=== PATIENT | male | born 1930 | race Hispanic/Latino ===

== ENCOUNTER 2019-04-05 09:44 | Observation (INO) | payer OTHER ==
--- OUTSIDE RECORDS SUMMARY | 2019-04-05 09:46 | XMS REPORT ---
:1930 Author Organization [facility] Address [address] [place] [id number] Care Team Providers Name Role Phone Unavailable Unavailable Unavailable Problems This patient has no known problems. Allergies, Adverse Reactions, Alerts This patient has no known allergies or adverse reactions. Medications This patient has no known medications.
[2019-04-05] MEDS ORDERED: NA CHLORIDE 0.9% 500 ML ONE (10:27)
[2019-04-05 10:38] LABS: Absolute Lymphocytes (CBC) 1.8 K/uL (0.7-4.9); Basophils % 0.5 % (0-1.3); Hematocrit 42.2 % (39.6-49.0); MPV 8.8 fL (7.6-11.3); RBC Red Blood Cell Count 4.64 M/uL (4.33-5.43)
[2019-04-05 10:55] LABS: Albumin 3.3 g/dL (3.4-5.0); Bilirubin Direct 0.3 mg/dL (0-0.2); Bilirubin Total 0.9 mg/dL (0.2-1.0); Potassium 3.8 mmol/L (3.5-5.1); Protein, Total 6.8 g/dL (6.4-8.2)
[2019-04-05 11:02] LABS: Urine Bacteria 20-50 /HPF (NONE SEEN); Urine RBC <5 /HPF (NONE SEEN)
[2019-04-05 11:03] LABS: Urine Culture Reflex Order NOT NEEDED; Urine Mucus 1+ /HPF (NONE SEEN)
[2019-04-05] MEDS ORDERED: LORazepam 2 MG/ML VIAL ONE ×2 (11:24→11:41)
[2019-04-05] MEDS ORDERED: CEFTRIAXONE/SWI 1gm 1 GM/10 ML SYR ONE (11:51)
--- NOTE | 2019-04-05 12:04 | RAD REPORT ---
EXAM DESCRIPTION: CT - Head Brain Wo Cont - 04/05/2019 11:49 am CLINICAL HISTORY: Alteration of awareness/confusion / agitation COMPARISON: January 2019 TECHNIQUE: Computed axial tomography of the head was obtained. IV contrast was not requested. All CT scans are performed using dose optimization technique as appropriate and may include automated exposure control or mA/KV adjustment according to patient size. FINDINGS: Very small right frontal lobe bleed has resolved. The ventricles are normal in caliber. No extra-axial fluid collection is noted. Cerebral atrophy is again demonstrated. Fluid within the sinuses/ mastoids is not seen. IMPRESSION: Resolution of the small right frontal lobe bleed
--- NOTE | 2019-04-05 12:13 | RAD REPORT ---
EXAM DESCRIPTION: CT - Abdomen Pelvis W Contrast - 04/05/2019 11:50 am CLINICAL HISTORY: Abdominal pain COMPARISON: 2013 TECHNIQUE: Computed axial tomography of the abdomen pelvis was obtained. 100 cc Isovue-300 was admin istered intravenously. Oral contrast was not requested which limits evaluation of bowel. All CT scans are performed using dose optimization technique as appropriate and may include automated exposure control or mA/KV adjustment according to patient size. FINDINGS: The liver, spleen, and adrenals appear unremarkable. Atrophic pancreas. 9.3 centimeter lef t renal cyst decreased in size from the prior exam. Small right renal cyst There is no evidence of diverticulitis. Normal appendix Mild rectal wall thickening. Mild enlargement of the prostate gland IMPRESSION: Mild rectal wall thickening may indicate a mild proctitis.
--- NOTE | 2019-04-05 12:14 | RAD REPORT ---
EXAM DESCRIPTION: Basilio Single View04/05/2019 11:20 am CLINICAL HISTORY: cough COMPARISON: 2017 FINDINGS: The lungs appear clear of acute infiltrate. The heart is normal size. The aorta is tortuo us/ectatic IMPRESSION: No acute abnormalities displayed
[2019-04-05 12:46] LABS: Urine Blood NEGATIVE (NEG); Urine Glucose NEGATIVE (NEG); Urine Protein TRACE (NEG)
--- NOTE | 2019-04-05 12:55 | EDPHYS ---
Physician Documentation [facility] Name: Tony Mcadams Age: 88 yrs Sex: Male : 1930 Arrival Date: 04/05/2019 Time: 09:46 Bed 8 Private MD: ED Physician Grant Arroyo HPI: 04/05 09:52 This 88 yrs old Male presents to ER via EMS with complaints of Confusion. rn 09:52 This 88 yrs old Male presents to ER via EMS with complaints of agitated. rn 09:52 The patient presents with agitation. Onset: The symptoms/episode began/occurred rn yesterday, at an unknown time. Possible causes: unknown. Current symptoms: In the emergency department the patient's symptoms are unchanged from the initial presentation. It is unknown whether or not the patient has had similar symptoms in the past. Pt new to [place], began complaining of pain and agitated since yesterday, unknown etiology, so EMS called today. Pt with dementia. No known trauma. Family not here to give information.. Historical: - Allergies: :52 No Known Allergies; tw2 - Home Meds: 09:52 paroxetine HCl 10 mg oral tab 1 tab once daily [Active]; Systane Vitamin [id number] tw2 fx-xi-zx-unit oral cap [Active]; triamterene-hydrochlorothiazid 37.5-25 mg Oral tab 1 tab once daily [Active]; acetaminophen 325 mg Oral tab 2 tabs every 6 hours [Active]; - PMHx: 09:52 Hypothyroidism; Depression; Edema; Osteoarthritis; Weakness; tw2 - PSHx: 09:52 None; tw2 - Immunization history:: Adult Immunizations. - Social history:: Smoking status: . - Ebola Screening: : Patient denies travel to an Ebola-affected area in the 21 days before illness onset. - Family history:: not pertinent. - Hospitalizations: : No recent hospitalization is reported. ROS: 09:57 Unable to obtain ROS due to baseline dementia, patient being uncooperative. rn Exam: :57 Constitutional: Thin male, appears agitated, incomprehensible speech, mumbling rn Head/Face: Normocephalic, atraumatic. ENT: dry MM Neck: Trachea midline, no thyromegaly or masses palpated, and no cervical lymphadenopathy. Supple, full range of motion without nuchal rigidity, or vertebral point tenderness. No Meningismus. Chest/axilla: Normal chest wall appearance and motion. Nontender with no deformity. No lesions are appreciated. Cardiovascular: Regular rate and rhythm. No pulse deficits. Respiratory: Lungs have equal breath sounds bilaterally, clear to auscultation. No increased work of breathing, no retractions or nasal flaring. Abdomen/GI: soft, some grimacing with palpation in lower quadrants Skin: Warm, dry MS/ Extremity: Pulses equal, no cyanosis. Neuro: Awake, incomprehensible speech, moves all 4 extremities with 4/5 strength. Does not follow commands, does track with eyes, continuaously mumbling, easily calmed and redirectable by family. Vital Signs: 09:50 BP 126 / 65; Pulse 74; Resp 18; Temp 97.5; Pulse Ox 100% ; Height 70 in. (177.80 cm); sv 11:04 BP 125 / 69; Pulse 64; Resp 16; Pulse Ox 100% ; sv 12:08 BP 124 / 61; Pulse 69; Resp 17; Pulse Ox 100% on R/A; tw2 12:42 BP 128 / 70; Pulse 60; Resp 16; Pulse Ox 100% on 2 lpm NC; sv 13:00 BP 146 / 61; Pulse 59; Resp 16; Pulse Ox 100% on 2 lpm NC; sv 13:30 BP 142 / 80; Pulse 58; Resp 16; Pulse Ox 100% on 2 lpm NC; sv MDM: 09:46 Patient medically screened. rn 12:51 Differential Diagnosis: CVA, electrolyte abnormality, intracranial bleed, pneumonia, rn sepsis, TIA, UTI, volume depletion. Data reviewed: vital signs, nurses notes, lab test result(s), EKG, radiologic studies, CT scan, plain films, and as a result, I will admit patient. Counseling: I had a detailed discussion with the patient and/or guardian regarding: the historical points, exam findings, and any diagnostic results supporting the discharge/admit diagnosis, lab results, radiology results, the need for further work-up and treatment in the hospital. Response to treatment: the patient's symptoms have mildly improved after treatment, and as a result, I will admit patient. Admission orders: after a detailed discussion of the patient's condition and case, the admit orders are written by me. ED course: Admitted to [facility] for AMS, delirium, UTI on cath specimen, patient not with it enough to take oral abx, and combative, will not be accepted back by retirement. . 04/05 09:50 Order name: CBC with Diff; Complete Time: 11: rn 04/05 09:50 Order name: Basic Metabolic Panel; Complete Time: 11: rn 04/05 09:50 Order name: Urine Culture rn 04/05 09:50 Order name: Urine Microscopic Only; Complete Time: : rn 04/05 09:50 Order name: Creatinine for Radiology; Complete Time: : rn 04/05 09:50 Order name: Hepatic Function; Complete Time: : rn 04/05 09:50 Order name: Lipase; Complete Time: : rn 04/05 10:01 Order name: Troponin (emerg Dept Use Only); Complete Time: 12:15 rn 04/05 10:30 Order name: Urine Dipstick--Ancillary (enter results); Complete Time: 12:48 eb 04/05 13:31 Order name: Lactate EDNE 04/05 13:31 Order name: Thyroid Stimulating Hormone EDNE 04/05 13:31 Order name: CBC with Automated Diff EDMS 04/05 13:31 Order name: CBC with Automated Diff EDNE 04/05 13:31 Order name: Comprehensive Metabolic Panel EDNE 04/05 09:50 Order name: CT Head Brain wo Cont; Complete Time: 12:15 rn 04/05 09:50 Order name: CT Abd/Pelvis - IV Contrast Only; Complete Time: 12:15 rn 04/05 09:50 Order name: XRAY Chest (1 view); Complete Time: 12:15 rn 04/05 13:31 Order name: NPO EDMS 04/05 13:31 Order name: Comprehensive Metabolic Panel EDNE 04/05 13:31 Order name: Troponin I EDNE 04/05 13:31 Order name: Troponin I EDMS 04/05 13:31 Order name: Troponin I EDMS 04/05 13:31 Order name: Troponin I EDMS 04/05 13:32 Order name: Urinalysis EDMS 04/05 13:36 Order name: Brain Wo Cont EDMS 04/05 09:50 Order name: IV Start; Complete Time: 10:32 rn 04/05 09:50 Order name: Urine Dipstick-Ancillary (obtain specimen); Complete Time: 10:32 rn 04/05 09:50 Order name: Labs collected and sent; Complete Time: 10:32 rn Administered Medications: 10:32 Drug: NS 0.9% 500 ml Route: IV; Rate: bolus; Site: left forearm; sv 11:00 Follow up: Response: No adverse reaction; IV Status: Completed infusion; IV Intake: sv 500ml 11:27 Drug: Ativan 0.5 mg Route: IVP; Site: left forearm; sv 11:42 Follow up: Response: No adverse reaction; No change in condition sv 11:42 Drug: Ativan 0.5 mg Route: IVP; Site: left forearm; sv 12:10 Follow up: Response: No adverse reaction; Marked relief of symptoms tw2 11:49 CANCELLED (Duplicate Order): Rocephin - (cefTRIAXone) 1 grams IVPB once over 30 mins; tw2 (mix in 50 mL NS) 11:55 Drug: Rocephin 1 grams Route: IV; Rate: bolus; Site: left forearm; tw2 12:00 Follow up: Response: No adverse reaction; IV Status: Completed infusion tw2 Disposition: 04/05/19 12:54 Hospitalization ordered by [facility] for Observation. Preliminary diagnosis are Delirium due to known physiological condition, Dehydration, Urinary tract infection, site not specified. - Bed requested for Telemetry/MedSurg (observation). - Status is Observation. sv - Condition is Stable. - Problem is new. - Symptoms have improved. UTI on Admission? Yes Signatures: Dispatcher [employer] EDMS Avis Urbina RN RN sv Nieto, Roman, MD MD rn Wise, Tara, RN RN tw2 Elvia Sandy Corrections: (The following items were deleted from the chart) 09:57 09:52 Constitutional: Negative for fever, chills, and weight loss, Eyes: Negative for rn injury, pain, redness, and discharge, Cardiovascular: Negative for chest pain, palpitations, and edema, Respiratory: Negative for shortness of breath, cough, wheezing, and pleuritic chest pain, Abdomen/GI: Negative for abdominal pain, nausea, vomiting, diarrhea, and constipation, MS/Extremity: Negative for injury and deformity, Skin: Negative for injury, rash, and discoloration, Neuro: Negative for headache, weakness, numbness, tingling, and seizure, rn 11:49 11:47 Rocephin - (cefTRIAXone) 1 grams IVPB once over 30 mins; (mix in 50 mL NS) tw2 ordered. rn 12:55 12:54 Hospitalization Ordered by [facility] MD for Observation. Preliminary eb diagnosis is Delirium due to known physiological condition; Dehydration; Urinary tract infection, site not specified. Bed requested for Telemetry/MedSurg (observation). Status is Observation. Condition is Stable. Problem is new. Symptoms have improved. UTI on Admission? Yes. rn 13:49 12:55 04/05/2019 12:54 Hospitalization Ordered by [facility] MD for Observation. eb Preliminary diagnosis is Delirium due to known physiological condition; Dehydration; Urinary tract infection, site not specified. Bed requested for Telemetry/MedSurg (observation). Status is Observation. Condition is Stable. Problem is new. Symptoms have improved. UTI on Admission? Yes. eb 14:20 13:49 04/05/2019 12:54 Hospitalization Ordered by [facility] MD for Observation. sv Preliminary diagnosis is Delirium due to known physiological condition; Dehydration; Urinary tract infection, site not specified. Bed requested for Telemetry/MedSurg (observation). Status is Observation. Condition is Stable. Problem is new. Symptoms have improved. UTI on Admission? Yes. eb
--- NOTE | 2019-04-05 12:55 | ER ---
Nurse's Notes [facility] Name: Tony Mcadams Age: 88 yrs Sex: Male : 1930 Arrival Date: 04/05/2019 Time: 09:46 Bed 8 Private MD: Diagnosis: Delirium due to known physiological condition;Dehydration;Urinary tract infection, site not specified Presentation: 04/05 09:41 Presenting complaint: EMS states: was admitted to [facility] on Tuesday for Dementia, sv is usually A\T\O x2-3 but today he was more confused and not taking his meds. BP 134/63 HR-74 RR-24 98.3. Transition of care: patient was not received from another setting of care. Onset of symptoms was April 05, 2019. Risk Assessment: Do you want to hurt yourself or someone else? Unable to obtain. Initial Sepsis Screen: Does the patient meet any 2 criteria? No. Patient's initial sepsis screen is negative. Does the patient have a suspected source of infection? No. Patient's initial sepsis screen is negative. 09:41 Method Of Arrival: EMS: [facility] sv 09:41 Acuity: PADMINI 3 sv 09:47 Care prior to arrival: None. tw2 Triage Assessment: 09:45 General: Appears in no apparent distress. Behavior is combative, uncooperative. Pain: sv Unable to use pain scale. Does not appear to understand pain scale. Neuro: Level of Consciousness is awake, alert, confused, Oriented to none Moves all extremities. Full function. Respiratory: Airway is patent Respiratory effort is even, unlabored, Respiratory pattern is regular, symmetrical. GI: Abd is soft X 4 quads Abdomen is tender to palpation in right lower quadrant and left lower quadrant with grimacing. Derm: Skin is normal. Historical: - Allergies: 09:52 No Known Allergies; tw2 - Home Meds: 09:52 paroxetine HCl 10 mg oral tab 1 tab once daily [Active]; Systane Vitamin [id number] tw2 xa-cv-qi-unit oral cap [Active]; triamterene-hydrochlorothiazid 37.5-25 mg Oral tab 1 tab once daily [Active]; acetaminophen 325 mg Oral tab 2 tabs every 6 hours [Active]; - PMHx: 09:52 Hypothyroidism; Depression; Edema; Osteoarthritis; Weakness; tw2 - PSHx: 09:52 None; tw2 - Immunization history:: Adult Immunizations. - Social history:: Smoking status: . - Ebola Screening: : Patient denies travel to an Ebola-affected area in the 21 days before illness onset. - Family history:: not pertinent. - Hospitalizations: : No recent hospitalization is reported. Screenin:47 Abuse screen: Denies threats or abuse. Nutritional screening: No deficits noted. tw2 Tuberculosis screening: No symptoms or risk factors identified. Fall Risk Secondary diagnosis (15 points) impaired mobility. Assessment: 10:36 Reassessment: Patient appears in no apparent distress at this time. No changes from sv previously documented assessment. Patient and/or family updated on plan of care and expected duration. Pain level reassessed. 12:08 Reassessment: Patient appears in no apparent distress at this time. Patient and/or tw2 family updated on plan of care and expected duration. Pain level reassessed. pt is resting quietly at this time. 13:10 Reassessment: Patient appears in no apparent distress at this time. No changes from sv previously documented assessment. Patient and/or family updated on plan of care and expected duration. Pain level reassessed. 14:00 Reassessment: Patient appears in no apparent distress at this time. No changes from sv previously documented assessment. Patient and/or family updated on plan of care and expected duration. Pain level reassessed. Vital Signs: 09:50 BP 126 / 65; Pulse 74; Resp 18; Temp 97.5; Pulse Ox 100% ; Height 70 in. (177.80 cm); sv 11:04 BP 125 / 69; Pulse 64; Resp 16; Pulse Ox 100% ; sv 12:08 BP 124 / 61; Pulse 69; Resp 17; Pulse Ox 100% on R/A; tw2 12:42 BP 128 / 70; Pulse 60; Resp 16; Pulse Ox 100% on 2 lpm NC; sv 13:00 BP 146 / 61; Pulse 59; Resp 16; Pulse Ox 100% on 2 lpm NC; sv 13:30 BP 142 / 80; Pulse 58; Resp 16; Pulse Ox 100% on 2 lpm NC; sv ED Course: 09:46 Patient arrived in ED. rn 09:46 Grant Arroyo MD is Attending Physician. rn 09:47 Arm band placed on. tw2 09:50 Triage completed. sv 09:50 Straight cath inserted, using sterile technique, 14 Fr. Specimen obtained. coude used sv after a 16F regular martin was unsuccessful. Returned elio urine. Patient tolerated poorly. 09:51 Patient has correct armband on for positive identification. Bed in low position. Call sv light in reach. Side rails up X2. Adult w/ patient. Pulse ox on. NIBP on. Warm blanket given. Head of bed elevated. 09:53 Avis Urbina, RN is Primary Nurse. sv 10:00 EKG done, by mathematical technician. reviewed by Grant Arroyo MD. at1 10:01 Inserted saline lock: 20 gauge in left forearm, using aseptic technique. Blood sv collected. Flushed left forearm with 5 ml normal saline. 10:22 Radiology exam delayed due to lab results not completed at this time. (BUN/Creatinine). sj 10:36 Awaiting lab results, Awaiting CT Scan, Awaiting for x-ray. sv 11:20 Radiology exam delayed due to wainting for ativan. sj 11:21 XRAY Chest (1 view) In Process Unspecified. EDMS 11:[address] via stretcher. sv 11:50 CT Head Brain wo Cont In Process Unspecified. EDMS 11:50 CT Abd/Pelvis - IV Contrast Only In Process Unspecified. EDMS 12:12 Awaiting radiology results. sv 12:53 [facility] MD is Hospitalizing Provider. rn 13:53 No provider procedures requiring assistance completed. Patient admitted, IV remains in sv place. intact. Administered Medications: 10:32 Drug: NS 0.9% 500 ml Route: IV; Rate: bolus; Site: left forearm; sv 11:00 Follow up: Response: No adverse reaction; IV Status: Completed infusion; IV Intake: sv 500ml 11:27 Drug: Ativan 0.5 mg Route: IVP; Site: left forearm; sv 11:42 Follow up: Response: No adverse reaction; No change in condition sv 11:42 Drug: Ativan 0.5 mg Route: IVP; Site: left forearm; sv 12:10 Follow up: Response: No adverse reaction; Marked relief of symptoms tw2 11:49 CANCELLED (Duplicate Order): Rocephin - (cefTRIAXone) 1 grams IVPB once over 30 mins; tw2 (mix in 50 mL NS) 11:55 Drug: Rocephin 1 grams Route: IV; Rate: bolus; Site: left forearm; tw2 12:00 Follow up: Response: No adverse reaction; IV Status: Completed infusion tw2 Intake: 11:00 IV: 500ml; Total: 500ml. sv Outcome: 12:54 Decision to Hospitalize by Provider. rn 14:01 Admitted to Tele accompanied by tech, family with patient, via stretcher, room 408, sv with oxygen, with chart, Report called to Natalie MCKEON 14:01 Condition: stable 14:01 Instructed on the need for admit. 14:20 Patient left the ED. sv Signatures: Dispatcher [employer] Avis Jiang RN RN sv Jones, Susan sj Nieto, Roman, MD MD rn Gonzales, Amanda, dry sander EKG Tat1 Margaret Guardado RN RN tw2 Corrections: (The following items were deleted from the chart) 09:53 09:41 Acuity: PADMINI 4 sv sv
[2019-04-05] MEDS ORDERED: ONDANSETRON 4 MG/2 ML VIAL IV PRN (13:26)
[2019-04-05] MEDS ORDERED: ACETAMINOPHEN 500 MG TAB PO PRN (13:26)
--- NOTE | 2019-04-05 13:34 | P.HP ---
Certification for Inpatient Patient admitted to: Inpatient With expected LOS: >2 Midnights Patient will require the following post-hospital care: [facility] Practitioner: I am a practitioner with admitting privileges, knowledge of patient current condition, hospital course, and medical plan of care. Services: Services provided to patient in accordance with Admission requirements found in Title 42 Section 412.3 of the Code of Federal Regulations Patient History Date of Service: 04/05/19 Reason for admission: Altered mental status History of Present Illness: 88-year-old male with past medical history of Hypothyroidism; Depression; Edema ; Osteoarthritis ,dementia transferred from the [facility] with altered mental status noticed this morning. Patient is still altered with no family at the bedside. Has most of the history is obtained from the chart review and talking with the ER physician. Patient developed altered mental status this morning and has been agitated and was brought to ER. The patient is still not responding well and the workup was showing UTI. His was admitted for further management. The time of interview. Vital signs are stable , patient still drowsy and difficult to arouse. Allergies NKDA Allergy (Uncoded 04/05/19 15:25) Unknown Home medications list reviewed: Yes Home Medications: Aspirin Chewable [Aspirin Chewable*] 1 tab PO DAILY 10/08/13 Levothyroxine Sodium 25 mcg PO [id number] 04/05/19 PARoxetine HCl [Paxil*] 1 tab PO DAILY 04/05/19 Triamterene/Hydrochlorothiazid [Triamterene-Hctz 37.5-25 mg Cp] 1 tab PO DAILY 04/05/19 - Past Medical/Surgical History Diabetic: No Past Medical History: Reviewed- Non-Contributory -: arthritis -: Dementia Past Surgical History: Unable to obtain - Family History Family History: Reviewed- Non-Contributory - Family History Mother -: Other (see notes) Notes: Dementia Sister -: Other (see notes) Notes: Dementia - Social History Alcohol use: No CD- Drugs: No Caffeine use: Yes Review of Systems is unable to be obtained Physical Examination - Vital Signs Temperature: 97.5 F Blood Pressure: 126/65 Pulse: 78 - Physical Exam General: In no apparent distress, Confused HEENT: Atraumatic, Normocephalic Neck: Supple Respiratory: Clear to auscultation bilaterally, Normal air movement Cardiovascular: Normal pulses, Regular rate/rhythm Capillary refill: <2 Seconds Gastrointestinal: Soft and benign, W/out hepatosplenomegaly Musculoskeletal: No swelling Integumentary: No rashes Neurological: Other (Drowsy , Difficult to arouse ) Lymphatics: No axilla or inguinal lymphadenopathy External genitalia: Deferred Rectal: Deferred - Studies Laboratory Data (last 24 hrs) 04/05/19 10:21: Creatinine 1.46 H 04/05/19 10:21: Sodium 143, Potassium 3.8, BUN 25 H, Creatinine 1.46 H, Glucose 102, Total Bilirubin 0.9, AST 26, ALT 14, Alkaline Phosphatase 58, Lipase 40 L 04/05/19 10:21: WBC 6.8, Hgb 13.8, Hct 42.2, Plt Count 194 Assessment and Plan - Problems (Diagnosis) (1) Acute encephalopathy Current Visit: Yes Status: Acute Plan: Acute encephalopathy Possibly related to UTI Start on antibiotics Monitor neuro vital signs closely CT brain findings: : Resolution of the small right frontal lobe bleed Will get an MRI of the brain Will get a neurology consult (2) UTI (urinary tract infection) Current Visit: Yes Status: Acute Plan: Will start on Rocephin get cultures Change antibiotic as per the sensitivity (3) Acute kidney injury Current Visit: Yes Status: Acute Plan: Probably related to dehydration Monitor renal parameters Will start on IV hydration (4) Dehydration Current Visit: Yes Status: Acute Plan: Start on IV hydration (5) Proctitis Current Visit: Yes Status: Acute Plan: will start on anbiotics Rocephin and Flagyl Pain control Discharge Plan: Correction Plan to discharge in: Greater than 2 days - Advance Directives Does patient have a Living Will: No Does patient have a Durable POA for Healthcare: No Time Spent Managing Pts Care (In Minutes): 45
[2019-04-05] MEDS ORDERED: CEFTRIAXONE/SWI 1gm 1 GM/10 ML SYR IVP SCH (14:00)
[2019-04-05] MEDS: NA CHLORIDE 0.9% 1,000 ML IV SCH (14:33)
[2019-04-05 15:08] VITALS: BMI 28.2
[2019-04-05] MEDS ORDERED: LORazepam 2 MG/ML VIAL IV PRN (16:04)
[2019-04-05] MEDS: METRONIDAZOLE 500mg IVPB 500 MG/100 ML BAG IV SCH (16:48)
[2019-04-06] MEDS: NA CHLORIDE 0.9% 1,000 ML IV SCH ×2 (03:27→12:04)
[2019-04-06] MEDS: METRONIDAZOLE 500mg IVPB 500 MG/100 ML BAG IV SCH ×3 (03:27→16:00)
[2019-04-06 06:31] LABS: Absolute Lymphocytes (CBC) 1.1 K/uL (0.7-4.9); Basophils % 0.4 % (0-1.3); Hematocrit 36.1 % (39.6-49.0); Lymphocytes % 19.6 % (15.3-44.8); MPV 9.1 fL (7.6-11.3); RBC Red Blood Cell Count 4.01 M/uL (4.33-5.43)
[2019-04-06 06:53] LABS: Albumin 2.7 g/dL (3.4-5.0); Bilirubin Total 0.8 mg/dL (0.2-1.0); Potassium 3.5 mmol/L (3.5-5.1); Protein, Total 5.7 g/dL (6.4-8.2); Troponin I 0.03 ng/mL (0.0-0.045)
[2019-04-06] MEDS ORDERED: KCL 20 MEQ/100 mL IVPB 20 MEQ/100 ML BAG IV SCH (08:00)
[2019-04-06] MEDS ORDERED: CEFTRIAXONE/SWI 1gm 1 GM/10 ML SYR IVP SCH (09:00)
--- NOTE | 2019-04-06 09:42 | P.PN ---
Subjective Date of Service: 04/06/19 Chief Complaint: Altered mental status Subjective: No new changes The patient originally admitted for altered mental status. Was found to have urinary tract infection and was encephalopathic. Review of Systems is unable to be obtained (Altered mentation) Physical Examination - Vital Signs Temperature: 97.7 F Blood Pressure: 101/54 Pulse: 66 Respirations: 16 Pulse Ox (%): 100 - Physical Exam General: Oriented x1, Confused HEENT: Normocephalic, PERRLA, Mucous membr. moist/pink, EOMI Neck: Supple, 2+ carotid pulse no bruit, JVD not distended, No Thyromegaly Respiratory: Clear to auscultation bilaterally, Normal air movement Cardiovascular: No edema, Normal pulses, Regular rate/rhythm, Normal S1 S2, No gallops, No rubs, Systolic murmur Capillary refill: <2 Seconds Gastrointestinal: Normal bowel sounds, Soft and benign, Non-distended, No ascites, No tenderness, No masses Musculoskeletal: No clubbing, No swelling, No erythema, No tenderness, No warmth , Contractures Integumentary: No rashes, No breakdown, No significant lesion, No tenderness/ swelling, No erythema, No warmth, No cyanosis Neurological: Other (Diffuse, somewhat follows commands, assessment inherently limited secondary to baseline mental status. ) - Studies Laboratory Data (last 24 hrs) 04/05/19 10:21: Creatinine 1.46 H 04/05/19 10:21: Sodium 143, Potassium 3.8, BUN 25 H, Creatinine 1.46 H, Glucose 102, Total Bilirubin 0.9, AST 26, ALT 14, Alkaline Phosphatase 58, Lipase 40 L 04/05/19 10:21: WBC 6.8, Hgb 13.8, Hct 42.2, Plt Count 194 Medications List Reviewed: Yes Assessment & Plan - Problems (Diagnosis) (1) Acute encephalopathy Current Visit: Yes Status: Acute Plan: Doctor Remi is seeing patient. MRI is ordered. Pending status to further determine if any other acute neurologic process is are present. (2) Acute kidney injury Current Visit: Yes Status: Acute Plan: Continue light hydration and monitor renal status with labs. (3) Dehydration Current Visit: Yes Status: Acute Plan: Any light hydration (4) Proctitis Current Visit: Yes Status: Acute Plan: Antibiotics given (5) UTI (urinary tract infection) Current Visit: Yes Status: Acute Plan: Continue antibiotics. Swallow study ordered. If the patient passes swallow study, Patient will be switched to oral antibiotics Qualifiers: Urinary tract infection type: acute cystitis (6) Diarrhea Current Visit: No Status: Acute Discharge Plan: Detention Plan to discharge in: 48 Hours - Code Status/Comfort Care Code Status Assessed: No Critical Care: No Time Spent Managing Pts Care (In Minutes): 25
--- NOTE | 2019-04-06 11:14 | RAD REPORT ---
EXAM DESCRIPTION: MRI - Brain Wo Cont - 04/05/2019 9:33 pm CLINICAL HISTORY: Alteration of consciousness/confusion COMPARISON: January [address] 2017 MRI TECHNIQUE: Axial, sagittal, and coronal magnetic images of the brain were obtained. Contrast was not requested FINDINGS: A small subdural hematoma is present along the right frontal and right parietal convexitie s. In retrospect it is present on the February 08, 2019 cat scan but is difficult to see given the p rominent cerebral atrophy which makes the CSF appear more prominent in this region. It is mildly decr eased in size. It is subacute Shift of midline structures is not present. . Diffusion-weighted/ADC mapping does not reveal evidence of acute infarction. The ventricles are normal caliber. Mild signal within periventricular, deep and subcortical white matter likely ischemic changes seconda ry to small vessel disease IMPRESSION: Small subdural hematoma along the right frontal and right parietal convexities is mildly diminished in size from February 08, 2019 and is subacute There is no shift of the midline structures Dr. Sylvester notified 11:08 a.m. April 06, 2019
--- NOTE | 2019-04-06 12:00 | EKG ---
Test Date: 2019-04-05 Test Time: 09:53:43 Drilling Assistant: ROXANA MEASUREMENT RESULTS: Intervals: Rate: 71 CT: 274 QRSD: 92 QT: 416 QTc: 452 [place]: P: 66 CT: 274 QRS: 65 T: -32 INTERPRETIVE STATEMENTS: Sinus rhythm with 1st degree AV block ST & T wave abnormality, consider inferior ischemia ST & T wave abnormality, consider anterolateral ischemia Abnormal ECG Compared to ECG 10/08/2013 09:09:18 ST (T wave) deviation now present Possible ischemia now present Right bundle-branch block no longer present Electronically Signed On 04-06-19 11:57:18 PERINATAL TECHNICIAN by Chalo Fernández
--- NOTE | 2019-04-06 13:34 | P.DS ---
Admission Date: 04/05/19 Discharge Date: 04/06/19 Reason for Admission: Altered mental status Consultations: Dr. Khalil - William (1) Acute encephalopathy Current Visit: Yes Status: Acute (2) Acute kidney injury Current Visit: Yes Status: Acute (3) Dehydration Current Visit: Yes Status: Acute (4) Proctitis Current Visit: Yes Status: Acute (5) UTI (urinary tract infection) Current Visit: Yes Status: Acute Qualifiers: Urinary tract infection type: acute cystitis (6) Diarrhea Current Visit: No Status: Acute Brief History of Present Illness: This is an 88-year-old male patient that was admitted through the emergency room after halfway sent him over for evaluation of acute altered mental status. At that time he was admitted for suspected urinary tract infection was put on antibiotics. Also had an acute kidney injury secondary to dehydration prerenal azotemia. Patient was evaluated by hospital medicine and neurology. Was kept on IV antibiotics, light hydration, oxygen supplementation. Hospital Course: Patient overall has done well. Patient is at baseline currently. Patient has a history of CVA and dementia. No growth of bacteria noted with microscopy. Patient's renal function has normalized. No acute electrolyte abnormalities. MRI shows a resolving subacute subdural hemorrhage. No seizure activity while in the care hospitalist team. Neurologic evaluation was completed without acute finding. EEG was attempted but patient uncooperative. The patient was weaned off oxygen and is without abnormal saturation and without acute respiratory compromise. Clinicals will be sent back to halfway in preparation for discharge today. <Jono Faye - Last Filed: 04/06/19 13:29> Admission Date: 04/05/19 Discharge Date: 04/06/19 Hospital Course: Case reviewed and discussed with Krzysztof Faye NP. Continue with discharge plan of care. <Chaitanya Sylvester - Last Filed: 04/06/19 17:43> Discharge Condition: FAIR Vital Signs/Physical Exam: Temp Pulse Resp BP Pulse Ox 97.7 F 58 16 111/55 L 96 04/06/19 12:00 04/06/19 12:00 04/06/19 12:00 04/06/19 12:00 04/06/19 12:00 General: Oriented x1, Demented, Confused HEENT: Normocephalic, PERRLA, Mucous membr. moist/pink, EOMI Neck: Supple, 2+ carotid pulse no bruit, JVD not distended, No Thyromegaly Respiratory: Clear to auscultation bilaterally, Normal air movement Cardiovascular: No edema, Normal pulses, Regular rate/rhythm, Normal S1 S2, No gallops, No rubs, Systolic murmur Capillary refill: <2 Seconds Gastrointestinal: Normal bowel sounds, Soft and benign, Non-distended, No ascites, No tenderness, No masses Musculoskeletal: No clubbing, No swelling, No contractures, No erythema, No tenderness, No warmth Integumentary: No rashes, No breakdown, No significant lesion, No tenderness/ swelling, No erythema, No warmth, No cyanosis Neurological: Sensation intact, Other (Full assessment limited due to mental status.), Dementia Lymphatics: No axilla or inguinal lymphadenopathy Laboratory Data at Discharge: WBC 5.7 K/uL (4.3-10.9) D 04/06/19 05:46 Hgb 12.1 g/dL (13.6-17.9) L 04/06/19 05:46 Hct 36.1 % (39.6-49.0) L 04/06/19 05:46 Plt Count 176 K/uL (152-406) 04/06/19 05:46 Sodium 144 mmol/L (136-145) 04/06/19 05:46 Potassium 3.5 mmol/L (3.5-5.1) 04/06/19 05:46 BUN 22 mg/dL (7-18) H 04/06/19 05:46 Creatinine 1.15 mg/dL (0.55-1.3) 04/06/19 05:46 Glucose 76 mg/dL (74-106) 04/06/19 05:46 Total Bilirubin 0.8 mg/dL (0.2-1.0) 04/06/19 05:46 AST 19 U/L (15-37) 04/06/19 05:46 ALT 10 U/L (12-78) L 04/06/19 05:46 Alkaline Phosphatase 47 U/L (45-117) 04/06/19 05:46 Troponin I 0.03 ng/mL (0.0-0.045) 04/06/19 05:46 Lipase 40 U/L (73-393) L 04/05/19 10:21 <Jono Faye - Last Filed: 04/06/19 13:29> Vital Signs/Physical Exam: Temp Pulse Resp BP Pulse Ox 97.2 F 60 16 127/57 L 100 04/06/19 16:00 04/06/19 16:00 04/06/19 16:00 04/06/19 16:00 04/06/19 16:00 Laboratory Data at Discharge: WBC 5.7 K/uL (4.3-10.9) D 04/06/19 05:46 Hgb 12.1 g/dL (13.6-17.9) L 04/06/19 05:46 Hct 36.1 % (39.6-49.0) L 04/06/19 05:46 Plt Count 176 K/uL (152-406) 04/06/19 05:46 Sodium 144 mmol/L (136-145) 04/06/19 05:46 Potassium 3.5 mmol/L (3.5-5.1) 04/06/19 05:46 BUN 22 mg/dL (7-18) H 04/06/19 05:46 Creatinine 1.15 mg/dL (0.55-1.3) 04/06/19 05:46 Glucose 76 mg/dL (74-106) 04/06/19 05:46 Total Bilirubin 0.8 mg/dL (0.2-1.0) 04/06/19 05:46 AST 19 U/L (15-37) 04/06/19 05:46 ALT 10 U/L (12-78) L 04/06/19 05:46 Alkaline Phosphatase 47 U/L (45-117) 04/06/19 05:46 Troponin I 0.03 ng/mL (0.0-0.045) 04/06/19 05:46 Lipase 40 U/L (73-393) L 04/05/19 10:21 <Chaitanya Sylvester - Last Filed: 04/06/19 17:43> Patient Discharge Instructions: -Patient admitted for toxic encephalopathy secondary to urinary tract infection. As such will be put on Augmentin 875 b.i.d. for 7 days. skilled nursing staff is to crush pill and put into soft diet so patient can ingest medicine with minimal risk of aspiration. -Patient has a number of other chronic medical conditions and will require continuation of home medications. -Patient needs to continue oral hydration to ensure patient does not go back into acute renal failure. -Patient can follow up with Dr. Khalil outpatient ferreira Diet: Soft diet Activity: Bedrest Time spent managing pt's care (in minutes): 45 <Jono Faye - Last Filed: 04/06/19 13:29> <Chaitanya Sylvester - Last Filed: 04/06/19 17:43> Home Medications: Aspirin Chewable [Aspirin Chewable*] 1 tab PO DAILY 10/08/13 Levothyroxine Sodium 25 mcg PO [id number] 04/05/19 PARoxetine HCl [Paxil*] 1 tab PO DAILY 04/05/19 Triamterene/Hydrochlorothiazid [Triamterene-Hctz 37.5-25 mg Cp] 1 tab PO DAILY 04/05/19 Amoxicillin/Potassium Clav [Augmentin 875-125 Tablet] 1 each PO BID 7 Days #14 tablet 04/06/19 New Medications: Amoxicillin/Potassium Clav [Augmentin 875-125 Tablet] 1 each PO BID 7 Days #14 tablet
[2019-04-06 16:44] VITALS: O2SAT 98
--- NOTE | 2019-04-06 16:44 | CON ---
Reason For Consultation: Consultation called because of altered mental status. History Of Present Illness: Mr. Mcadams is an 88-year-old patient [facility] He has problems of advanced dementia, edema, osteoarthritis, hypothyroidism, and a reported subdural hematoma. The patient is nonverbal and the information is obtained from chart review and sp eaking with nurses. Apparently at his group home, he was less interactive than usual. However, the i nformation is not clear as to what his baseline level of functioning or change was from his baseline level of functioning. In any event, he was brought into [facility] and his initial workup a ppeared to show a possible urinary tract infection. However, cultures did not grow more than 10,000 colony-forming units. His head CT scan did apparently show what appeared to be resolution of a small right frontal bleed. However, the following brain MRI did identify the small subdural hematoma in t he right frontal and parietal convexities that was mildly diminished in size compared to January, and at that point, it was subacute. No acute findings were identified. Past Medical History: As indicated. Allergies: NO KNOWN ALLERGIES. Medications: At home include aspirin 81 mg daily, levothyroxine 25 mcg daily, Paxil daily, triamtere ne hydrochlorothiazide 37.5-25 one daily. Surgical History: Not known. Family History: Dementia in mother and sister. Social History: Resides in a group home. Review of Systems: Unable to obtain. Physical Examination: Vital Signs: Blood pressure 111/55, pulse 58, respiratory rate 16, temperature 97.7, oxygen saturati on 100% on 2 L nasal cannula. Weight 175 pounds, height 5 feet 6 inches, BMI 28.2. Neurologic: Mr. Mcadams is resting in bed. He mumbles incoherently and does track with eyes. Liriano s have good visual threat response. Seems to move arms equally well when stimulated and legs appear to move well when stimulated. He is not following commands. Tone appears slightly increased in the upper and lower extremities with mild paratonia. He has symmetric reflexes. Laboratory Studies: His complete blood count with differential is essentially unremarkable. Basic m etabolic panel shows slightly elevated chloride of 109, elevated BUN of 22, creatinine 1.15, calcium 8.2, lactic acid of 1. Liver function studies essentially unremarkable. ALT is 10. TSH 3.49. Urin alysis was remarkable for bacteria and 5-10 white blood cells. Blood cultures were negative. Electr ocardiogram shows first-degree AV block, ST and T-wave abnormalities. Consider inferior ischemia as well as anterolateral ischemia. Assessment: Mr. Mcadams is an 88-year-old patient with likely chronic confusion based on dementia in addition to the effects of a chronic subdural hematoma. His urinalysis did not clearly show evide nce of urinary tract infection and he does not have any significant electrolyte abnormalities and no systemic infection as reflected by a normal white blood cell count. The patient may still have an ab normal electrographic discharge in the area of his subdural, which may be a contributing factor to hi s encephalopathy. At this point, the patient appears to be at a baseline level of interaction and th ere is no evidence of an acute ongoing event in his workup. Plan: The patient may be discharged back to his group home. Suggest repeat head CT or MRI in 3 month s to look for complete resolution of the subdural hematoma. Also may benefit from an EEG to determin e if the area compressed by the blood shows any abnormal electrical discharges. At this point, he sh ould continue with DVT prophylaxis and continue with medications for comorbid conditions. He did rec eive 1 g of Rocephin for his potential urinary tract infection and he has also received Flagyl from his primary team and that may continue as per primary team. GEOVANNA/MILTON Voice ID: [id number] Report ID: [id number]
[2019-04-06 16:47] VITALS: BP 127/57; TEMP 97.2
[2019-04-06] MEDS ORDERED: LORazepam 2 MG/ML VIAL IM ONE (17:24)
== END 2019-04-06 17:50 ==
LOC: ER 09:44 → INTOOBSV 13:27 → ERHOLD 13:27 → 4TH 14:03
PROVIDERS: ADMIT Family Medicine; ATTEND Family Medicine
DX: N30.00 Acute cystitis without hematuria (principal); G93.40 Encephalopathy, unspecified; N17.9 Acute kidney failure, unspecified; E86.0 Dehydration; K62.89 Other specified diseases of anus and rectum; R19.7 Diarrhea, unspecified; E03.9 Hypothyroidism, unspecified; Z86.73 Personal history of transient ischemic attack (TIA), and cerebral infarction without residual deficits
CPT/HCPCS: 93005; 87088; 85025 ×2; 87086; 80048; 36415 ×2; 80076; 83605; 84443; 84484 ×4; 83690; 80053; 70450; 74177; 71045; 70551; 92610; 51702; 96375; 96374; 99285; Q9967; J0696 ×2; J7040; J7030 ×3; G0378 ×3; 81003; 81015